=== PATIENT | male | born 1995 | race Caucasian/White ===

== ENCOUNTER 2020-05-04 06:23 | Emergency (ER) | payer OTHER ==
[~2020-05-04] VITALS: Ht 182.9 cm; Wt 101.7 kg
[2020-05-04 06:40] VITALS: BP 120/70
[2020-05-04] MEDS ORDERED: ONDANSETRON ODT 4 MG TAB.RAPDIS PO ONE (06:45)
[2020-05-04] MEDS ORDERED: IBUPROFEN 600 MG TABLET. PO ONE (06:45)
--- NOTE | 2020-05-04 06:51 | PHYS DOC ---
Past History Past Medical History: No Pertinent History Past Surgical History: Other Additional Past Surgical Histo: [place] teeth extraction Alcohol Use: Occasionally General Adult EDM: Chief Complaint: COUGH HPI: HPI: History was obtained from the patient. Patient is a 24-year-old male seasonal allergies who presents with chief complaint of cough, vomiting, fatigue. Patient states the symptoms have been progressive over the past 2 to 3 days. He has been trying home antiallergy medication including Claritin without relief. He notes that his cough is occasionally dry but at times he does produce sputum. He does note loss of taste. Denies any objective fevers. Denies any known exposure to coronavirus. Does note that he has had 2 episodes of nonbloody nonbilious emesis. Denies abdominal pain. Denies chest pain or shortness of breath. Denies syncope. Denies any recent antibiotics or steroids. Does note that his throat was slightly sore over the past 2 days. Denies IV drug use. Denies tobacco abuse. No other complaints. Review of Systems: Review of Systems: Constitutional: Denies fever or chills Eyes: Denies change in visual acuity HENT: Positive for sore throat Respiratory: Positive for cough Cardiovascular: Denies chest pain or edema GI: Positive for vomiting : Denies dysuria Musculoskeletal: Denies back pain or joint pain Integument: Denies rash Neurologic: Denies headache, focal weakness or sensory changes Endocrine: Denies polyuria or polydipsia Lymphatic: Denies swollen glands Psychiatric: Denies depression or anxiety Heart Score: Risk Factors: Risk Factors: DM, Current or recent (<one month) smoker, HTN, HLP, family history of CAD, obesity. Risk Scores: Score 0 - 3: 2.5% MACE over next 6 weeks - Discharge Home Score 4 - 6: 20.3% MACE over next 6 weeks - Admit for Clinical Observation Score 7 - 10: 72.7% MACE over next 6 weeks - Early Invasive Strategies Current Medications: Current Meds: Current Medications Medications (Trade) Dose Ordered Sig/Patrick Start Time Stop Time Status Last Admin Dose Admin Ibuprofen (Motrin) 600 mg 1X ONCE 05/04/20 06:45 05/04/20 06:46 DC Ondansetron HCl (Zofran Odt) 4 mg 1X ONCE 05/04/20 06:45 05/04/20 06:46 DC Allergies: Allergies: Allergies Coded Allergies Type Severity Reaction Last Updated Verified Unable to Assess 05/04/20 No Physical Exam: PE: Constitutional: Well developed, well nourished, no acute distress, non-toxic appearance. [] HENT: Normocephalic, atraumatic, bilateral external ears normal, oropharynx moist, no oral exudates, nose normal. [] Eyes: PERRLA, EOMI, conjunctiva normal, no discharge. [] Neck: Normal range of motion, no tenderness, supple, no stridor. [] Cardiovascular:Heart rate regular rhythm, no murmur [] Lungs & Thorax: Bilateral breath sounds clear to auscultation [] Abdomen: soft, no tenderness, no masses, no pulsatile masses. [] Skin: Warm, dry, no erythema, no rash. [] Back: No tenderness, no CVA tenderness. [] Extremities: No tenderness, no cyanosis, no clubbing, ROM intact, no edema. [] Neurologic: Alert and oriented X 3, normal motor function, normal sensory function, no focal deficits noted. [] Psychologic: Affect normal, judgement normal, mood normal. [] Current Patient Data: Vital Signs: Vital Signs Date Time Temp Pulse Resp B/P (MAP) Pulse Ox O2 Delivery O2 Flow Rate FiO2 05/04/20 06:40 98.2 82 15 120/70 (87) 98 Room Air EKG: EKG: [] Radiology/Procedures: Radiology/Procedures: [address] [address] IMAGING REPORT Signed PATIENT: ANDREW YEH EACCOUNT: [id number] : 1995 LOCATION: ER AGE: 24 SEX: M EXAM STATUS: REG ER ORD. PHYSICIAN: ZURDO LAWSON DO REASON: cough PROCEDURE: CHEST AP ONLY EXAMINATION: CHEST AP ONLY CLINICAL HISTORY: Reason: cough / Spl. Instructions: / History: EXAM DATE/TIME: 05/04/2020 7:03 AM COMPARISON: None FINDINGS: Lines, Tubes, and Devices: None. Cardiomediastinal Silhouette: Within normal limits. Lungs and Pleura: No evidence of focal airspace consolidation, pleural effusion, or pneumothorax. Bones and Soft Tissues: No acute osseous abnormality. IMPRESSION: No evidence of acute cardiopulmonary abnormality. Electronically signed by: Thanh Hawthorne DO (05/04/2020 7:44 AM) [id number] DICTATED AND SIGNED BY: THANH HAWTHORNE DO DATE: 05/04/20 0744 CC: PCP,UNKNOWN; ZURDO LAWSON DO ~ [] Course & Med Decision Making: Course & Med Decision Making Pertinent Labs and Imaging studies reviewed. (See chart for details) Patient is a well-appearing 24-year-old male who presents with chief complaint of cough, loss of taste, vomiting. Initial vital signs normal. Patient does not appear toxic. Lungs are clear to auscultation bilaterally. Chest x-ray nonacute. COVID swab was obtained and pending. I do feel the patient is appropriate for outpatient management and discharge home. He will be discharged home with supportive care measures. Return precautions discussed and understood. Quarantine instructions given. Instructed to follow-up with his primary care physician in the next 2 to 3 days. Stable for discharge home. []COVID-19 CRITERIA: The patient was evaluated during the global COVID-19 pandemic, and that diagnosis was suspected/considered upon their initial presentation. Their evaluation, treatment and testing was consistent with current guidelines for patients who present with complaints or symptoms that may be related to COVID-19. Heber Disclaimer: Heber Disclaimer: This electronic medical record was generated, in whole or in part, using a voice recognition dictation system. Departure Departure: Impression: Primary Impression: Cough Additional Impression: Suspected COVID-19 virus infection Disposition: HOME/RESIDENCE PRIOR TO ADM Condition: STABLE Referrals: PCP,UNKNOWN (PCP) Additional Instructions: You have been tested for or diagnosed with COVID-19. It is an infection caused by a new type of coronavirus. COVID-19 will cause cold-like or mild flu symptoms in most. It can cause more severe symptoms like problems breathing in some. There is no treatment for COVID-19. The body will clear the infection over time. Self-care will help to ease discomfort. Steps to Take: Self-Care Rest as needed. Healthy habits may help you feel better. Steps include: Choose healthy foods including fruits and vegetables. Drink water throughout the day. Get plenty of sleep each night. If you smoke, try to quit. It may ease breathing. Avoid alcohol. Keep Others Healthy The virus can spread to others. Droplets are released every time you sneeze or cough. The droplets can get into the mouth, nose, or eyes of people near you and lead to infection. To lower the chances of spreading COVID-19 to others: Stay at home until your doctor has said it is safe to leave. If you tested posi tive this will mean staying isolated until both of the following are true: At least 7 days have passed since the start of illness. You are free of fever for at least 72 hours without the use of medicine. During this time: - Avoid public areas, events, or transportation. Do not return to work or school until your doctor has said it is safe to do so. - Call ahead if you need to go to a medical center. Let them know you may have COVID-19. It will help them guide you where to go. They may also ask you to wear a facemask when you come to the office. - If you call for emergency medical services, let them know you may have COVID- 19. While at home: - Try to avoid close contact with others. Stay about 6 feet away. - If possible, spend most of your time in a separate room from others. - Use a face mask if you will be in close contact with others such as sharing a room or vehicle. - Have someone wipe down common surfaces in the home. Use household marine photographer every day on areas like doorknobs, counters, or sinks. - Cough or sneeze into a tissue. Throw the tissue away right after use. If a tissue is not available, cough or sneeze into your elbow. - Wash your hands often. Wash them after sneezing or coughing. Use soap and water and wash for at least 20 seconds. Alcohol based hand dry cleaner can be used if soap and water is not available. - Do not prepare food for others. Avoid sharing personal items like forks, spoons, or toothbrushes. - Avoid close contact with pets while you are sick. There is no evidence of the virus passing to pets. This is a safety step until more is known about this virus. Isolation can be frustrating. Social interaction can help. Keep in touch with friends and family through phone and tech options. You can still interact with others in your home, just keep a safe distance of about 6 feet. Follow-up: Your doctors office will check in with you to see if there are any changes in your health. You may be asked to keep track of symptoms to share with them. They will also let you know when you are clear to be in public again. Problems to Look Out For: Contact your doctor if your recovery is not going as you expect. Get emergency care if you have problems such as: - Trouble breathing - Nonstop chest pain or pressure - Changes in awareness, confusion, or problems waking - Lips or face have bluish color - Worsening of symptoms If you think you have an emergency, call for emergency medical services right away. [facility] Ondansetron Hcl (ZOFRAN) 4 Mg Tablet 4 MG PO TID PRN PRN for NAUSEA, #9 TAB Prov: ZURDO LAWSON DO 05/04/20 Fluticasone Propionate (Flonase Allergy Relief) 9.9 Ml [place].susp 2 SPRAYS NS DAILY for nasal congestion for 14 Days, #1 BOTTLE Prov: ZURDO LAWSON DO 05/04/20 Guaifenesin/Dextromethorphan (MUCINEX DM ER 600-30 MG TABLET) 1 Each Tab.er.12h 1 TAB PO PRN BID PRN for cough and congestion for 5 Days, #10 TAB 0 Refills Prov: ZURDO LAWSON DO 05/04/20 Benzonatate (TESSALON PERLE) 100 Mg Capsule 1 CAP PO TID for cough, #10 CAP Prov: ZURDO LAWSON DO 05/04/20 ZURDO LAWSON DO May 04, 2020 06:51
[2020-05-04] MEDS ORDERED: FLUT9.9S NS (06:57)
[2020-05-04] MEDS ORDERED: ONDA4TAB7 PO (06:57)
[2020-05-04] MEDS ORDERED: GUAI-108 PO (06:57)
[2020-05-04] MEDS ORDERED: BENZ100C PO (06:57)
--- NOTE | 2020-05-04 07:46 | RAD ---
EXAMINATION: CHEST AP ONLY CLINICAL HISTORY: Reason: cough / Spl. Instructions: / History: EXAM DATE/TIME: 05/04/2020 7:03 AM COMPARISON: None FINDINGS: Lines, Tubes, and Devices: None. Cardiomediastinal Silhouette: Within normal limits. Lungs and Pleura: No evidence of focal airspace consolidation, pleural effusion, or pneumothorax. Bones and Soft Tissues: No acute osseous abnormality. IMPRESSION: No evidence of acute cardiopulmonary abnormality. Electronically signed by: Thanh Davis DO (05/04/2020 7:44 AM) [id number]
--- NOTE | 2020-05-07 10:21 | NUR ---
IP: notified patient of COVID result.
== END 2020-05-04 07:50 | disposition home or self-care (01) ==
LOC: ER 06:23
DX: R05 Cough (principal); R11.10 Vomiting, unspecified; R53.83 Other fatigue; Z20.828 Contact with and (suspected) exposure to other viral communicable diseases
CPT/HCPCS: 71045; 99284; Q0162; U0003

== ENCOUNTER 2020-06-27 08:28 | Emergency (ER) | payer OTHER ==
[~2020-06-27] VITALS: Ht 182.9 cm; Wt 100.0 kg
[~2020-06-27 08:28] MED LIST: BENZ100C PO; FLUT9.9S NS; GUAI-108 PO; ONDA4TAB7 PO
[2020-06-27 08:30] VITALS: BP 140/82
[2020-06-27] MEDS ORDERED: NEOM28.32 TP (08:58)
--- NOTE | 2020-06-27 09:00 | PHYS DOC ---
Past History Past Medical History: No Pertinent History Past Surgical History: No Surgical History Additional Past Surgical Histo: [place] teeth extraction Alcohol Use: Occasionally General Adult EDM: Chief Complaint: PENIS PROBLEM HPI: HPI: History from patient. Patient is a 24-year-old male with no reported PMH presents to complaint of skin tear to the dorsal aspect of his penis. He states he has had a skin tag in that area his entire life. He states today while urinating at work he noted the skin tag had torn and had mild bleeding. Denies any dysuria. Denies hematuria. Denies testicle pain. States the bleeding is stopped. States the area is somewhat irritated when he touches it. Denies any trauma. Denies changes in size or consistency of the skin tag leading up to this. No other complaints. Review of Systems: Review of Systems: Constitutional: Denies fever or chills Eyes: Denies change in visual acuity HENT: Denies nasal congestion or sore throat Respiratory: Denies cough or shortness of breath Cardiovascular: Denies chest pain or edema GI: Denies abdominal pain, nausea, vomiting, bloody stools or diarrhea : Denies dysuria Musculoskeletal: Denies back pain or joint pain Integument: Denies rash Neurologic: Denies headache, focal weakness or sensory changes Endocrine: Denies polyuria or polydipsia Lymphatic: Denies swollen glands Psychiatric: Denies depression or anxiety Allergies: Allergies: Allergies Coded Allergies Type Severity Reaction Last Updated Verified No Known Drug Allergies 06/27/20 No Physical Exam: PE: Constitutional: Well developed, well nourished, no acute distress, non-toxic appearance. [] HENT: Normocephalic, atraumatic, bilateral external ears normal, oropharynx moist, no oral exudates, nose normal. [] Eyes: PERRLA, EOMI, conjunctiva normal, no discharge. [] Neck: Normal range of motion, no tenderness, supple, no stridor. [] Cardiovascular:Heart rate regular rhythm, no murmur [] Lungs & Thorax: Bilateral breath sounds clear to auscultation [] Abdomen: soft, no tenderness, no masses, no pulsatile masses. [] : Circumcised. No testicular pain or tenderness. 2 mm skin tag noted to the distal aspect of the penis overlying the glans penis. No bleeding appreciated. Slight stare noted. No surrounding induration or erythema. Not consistent with HPV. Not consistent with condyloma acuminata or jil. Skin: Warm, dry, no erythema, no rash. [] Back: No tenderness, no CVA tenderness. [] Extremities: No tenderness, no cyanosis, no clubbing, ROM intact, no edema. [] Neurologic: Alert and oriented X 3, normal motor function, normal sensory function, no focal deficits noted. [] Psychologic: Affect normal, judgement normal, mood normal. [] Current Patient Data: Vital Signs: Vital Signs Date Time Temp Pulse Resp B/P (MAP) Pulse Ox O2 Delivery O2 Flow Rate FiO2 06/27/20 08:30 98.1 72 16 140/82 (101) 99 Room Air EKG: EKG: [] Radiology/Procedures: Radiology/Procedures: [] Heart Score: Risk Factors: Risk Factors: DM, Current or recent (<one month) smoker, HTN, HLP, family history of CAD, obesity. Risk Scores: Score 0 - 3: 2.5% MACE over next 6 weeks - Discharge Home Score 4 - 6: 20.3% MACE over next 6 weeks - Admit for Clinical Observation Score 7 - 10: 72.7% MACE over next 6 weeks - Early Invasive Strategies Course & Med Decision Making: Course & Med Decision Making Pertinent Labs and Imaging studies reviewed. (See chart for details) [] Patient is a well-appearing 24-year-old male who presents with chief complaint of skin tag tear to the dorsal aspect of his penis. No signs of active bleeding. No signs of infection. Overall do not feel labs or imaging are indicated. I did encourage topical ointments to lubricate the area including Neosporin. He was encouraged to follow-up with his primary care physician. Patient agreeable to this plan. Stable for discharge home. Heber Disclaimer: Heber Disclaimer: This electronic medical record was generated, in whole or in part, using a voice recognition dictation system. Departure Departure: Impression: Primary Impression: Penile adhesions w/skin bridging Disposition: 01 DC HOME SELF CARE/HOMELESS Condition: STABLE Referrals: PCP,UNKNOWN (PCP) SAMINA VALENTINO MD Patient Instructions: Adhesions Scripts Neomy Sulf/Bacitrac Zn/Poly (NEOSPORIN OINTMENT) 28.3 Gm Oint...g. 28.3 GM TP TID PRN PRN for infection for 7 Days, #1 [facility] [place] Prov: ZURDO LAWSON DO 06/27/20 ZURDO LAWSON DO Jun 27, 2020 09:00
== END 2020-06-27 09:10 | disposition home or self-care (01) ==
LOC: ER 08:28
DX: Q55.8 Other specified congenital malformations of male genital organs (principal); L91.8 Other hypertrophic disorders of the skin
CPT/HCPCS: 99282